=== PATIENT | male | born 2000 | race Caucasian/White ===

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

== ENCOUNTER → 2018-02-13 | Outpatient (CLI) | payer OTHER ==
[~2018-02-13] MED LIST changes: -CEFAZOLIN 1000MG IV PUSH 5 ML IV SCH; -LACTATED RINGER'S 1000ML 1,000 ML IV SCH
--- NOTE | 2018-02-14 06:16 | PAP/PSG TECHNICIAN REPORT ---
[facility] Operations And Maintenance Supervisor Polysomnogram Report Study name: None Report date: 02/14/2018 Study date: 02/13/2018 Referring Physician: DR. MACIAS Name: HARRY MEDLEY Interpreting Physician: Toi Marroquin D.O. Date of : 2000 Operations And Maintenance Supervisor: Marc Barahona [facility]. Sex: Male Age: 17 StudyType: PSG Weight: 175 lbs Height: 17 years, Height 5' 4" BMI: 30.04 Medications: LEVOTHYROXINE 100 MCG, FLUTICASONE PROPIONATE 50 MCG Patient History PATIENT RECENTLY HAD A SLEEP STUDY DONE THAT SHOWED HE WAS POSITIVE FOR RUPESH. HE HAD A SURGICAL PROCEDURE COMPLETED IN ORDER TO HELP WITH HIS RUPESH. HE IS HERE TODAY FOR REEVALUATION OF HIS RUPESH. RM 6 Parameters Monitored NPSG: E1-M2, E2-M1, Fp1-M2, Fp2-M1, F3-M2, F4-M2, F4-M1, C3-M2, C4-M2, C4-M1, O1-M2, O2-M2, O2-M1, T3-M2, T4-M1, P3-M2, P4-M1, CHIN1, CHIN2, HR, EKG, Legs, PFLOW, SNOR, FLOW, CFLOW, Tidal Volume, THOR, ABDO, SpO2, PLTH, CPRESS, ETCO2 Wave, ETCO2, pH Sleep Architecture Sleep Stages Time at Lights Off 9:56:13 PM STAGES Time (min.) TST (%) Time at Lights On 5:29:13 AM Wake 71.0 -- Total Recording Time (TRT) 453.00 min. N1 18.5 5 Total Sleep Period (TSP) 413.5 min. N2 231.0 60 Total Sleep Time (TST) 382.0min. N3 70.0 18 Awake Time 71.0 min. REM 62.5 16 Wake after Sleep Onset 31.5 min. Sleep Efficiency (SE) 84 % Sleep Onset Latency (XI) 39.5 min. Number of Stage 1 Shifts None Awakenings 17 Stage Changes 83 Number of REM periods 2 REM 62.5 16 REM Latency 184.5 min. NREM 319.5 84 Body Position Analysis Supine Right Left Side Prone Vertical Total Sleep Time (min.) 453.0 0.0 0.0 0.00 0.0 0.0 Total Sleep Time (%) 100% 0% 0% 0 0% N/A% Total Sleep Time REM (min.) 62.5 0.0 0.0 None 0.0 0.0 Total Sleep Time NREM (min.) 319.5 0.0 0.0 None 0.0 0.0 Intermittent Wake (min.) 71.0 0.0 0.0 None 0.0 0.0 Total Sleep Period (%) 100% None None None None None Arousals Myoclonus (PLM) * Events Count Index Events Count Index Spontaneous 49 8 Events Awake (PLMW) 50 42.3 Respiratory 21 3.3 Events Asleep w/ Arousal (PLMA) 9 1.4 PLM 9 1 Events Asleep w/o Arousal (PLMS) 68 10.7 Snoring 2 0 Total Asleep 77 12.1 Total 81 13 Total 127 17 Respiratory Analysis * CA OA MA CH H RERA Total Count 0 111 2 0 99 0 212 Index 0.0 17.4 0.3 0 15.5 0 33.3 Mean Duration 0.0 24.5 25.5 0.00 19.3 0.0 22.1 Longest Duration 0.0 59.9 34.8 0.00 34.8 0.0 59.9 Respiratory Event Summary Total Supine ~Supine Right Left Prone REM NREM Apneas Count 113 113 N/A N/A N/A N/A 44 69 Index 17.7 18 N/A N/A N/A N/A 42 13 Hypopneas (4% Desat) Count 99 99 N/A N/A N/A N/A 19 80 Index 15.5 15.5 N/A N/A N/A N/A 18.2 15.0 Apneas & All Hypopneas Count 212 212 N/A N/A N/A N/A 63 149 Index 33.3 33 N/A N/A N/A N/A 60.5 28.0 Respiratory Events (Social Science Manager+All Hyp+RERA) Count 212 212 N/A N/A N/A N/A 63 149 Index 33.3 33 N/A N/A N/A N/A 60.5 28.0 Respiratory Related Arousal Count 21 212 N/A N/A N/A N/A 2 19 Index 3.3 3 N/A N/A N/A N/A 2 4 Snoring Analysis Supine Right Left Prone REM NREM Total Snore duration 2.3 min Snores count 97 N/A N/A N/A 21 76 97 Snore mean duration 1.4 Sec Snores index 15 N/A N/A N/A 20.2 14.3 15.2 TST with snoring (%) 0.6% Desaturation Event Summary: Minimum %SpO2 Event Count Mean/Min/Max Duration(sec.) Desaturation Index % Time In Bed > 90 187 25.7 / 4.5 / 55.8 33.7 74.3 86 - 90 84 25.2 / 5.8 / 52.8 58.5 19.2 81 - 85 2 11.3 / 6.3 / 16.3 8.7 3.1 76 - 80 0 N/A 0.0 1.5 71 - 75 0 N/A 0.0 1.4 66 - 70 0 N/A 0.0 0.4 61 - 65 0 N/A 0.0 0.1 56 - 60 0 N/A 0.0 0.0 51 - 55 0 N/A 0.0 0.0 < 50 0 N/A 0.0 0.0 Total REM NREM Awake <50% 0.0 min. 0.0 min. 0.0 min. 0.0 min. 51 - 60% 0.0 min. 0.0 min. 0.0 min. 0.0 min. 61 - 70% 2.2 min. 2.2 min. 0.0 min. 0.0 min. 71 - 80% 13.0 min. 12.8 min. 0.2 min. 0.0 min. 81 - 90% 99.9 min. 25.5 min. 72.5 min. 1.9 min. 91 - 100% 333.3 min. 21.4 min. 243.8 min. 68.1 min. Average 91 86 91 93 Minimum SpO2 64 64 79 88 Desaturation Event Index 27.2 62.4 25.7 2.5 # Desat. Events below 89% 155 61 94 N/A Time(%) with Saturation below 89% 13.0 6.9 6.1 0.0 Time(min.) with Saturation below 89% 58.4 31.1 27.3 0.0 Time (mins) REM (mins) NREM (mins) % of TST SpO2 Below 90% 197 65 N132 20.2 SpO2 Below 88% 66 0 0 12 Heart Rate Analysis Min (bpm) Max (bpm) Average (bpm) Awake 47 237 74 NREM 51 127 67 REM 56 96 69 Overall 51 127 67 Supplemental O2 Values Minimum O2 level: None Value Start Time End Time Operations And Maintenance Supervisor Comments Mr. Medley slept in the supine positions. No cardiac arrhythmia noted. Leg movements noted. No bruxism noted. Snoring was noted and scored as a 2 on a scale of 1 through 5. (0=no snoring, 5=snoring loud enough to be heard through a closed door or down the [address] way) Mr. Medley awoke to use the restroom 0 times during the night. Mr. Medley stated I slept as well as I do when I am in my own bed. The final report will be interpreted and signed by a sleep physician. The completed physician report will then be placed in the patient medical record. Therapy (cm H2O) 0 TIB (min.) 453.0 TST (min.) 382.0 Sleep Onset (min.) 39.5 REM Onset From Sleep (min.) 184.5 Sleep Efficiency % 84 Wakefulness (%) 16 Wakefulness (min.) 71.0 NREM 1 (%) 5 NREM 1 (min.) 18.5 NREM 2 (%) 60 NREM 2 (min.) 231.0 NREM 3 (%) 18 NREM 3 (min.) 70.0 REM (%) 16 REM (min.) 62.5 # Arousals 81 Arousal Index 13 # Snore 97 Snore Index 15.2 AHI 33.3 AHI Supine 33 AHI Non-Supine N/A NREM AHI 28.0 REM AHI 60.5 RDI 33.3 # Obstructive Apnea 111 # Central Apnea 0 # Mixed Apnea 2 # Hypopneas 99 RERAs 0 Total Respiratory Events 214 Time Below SpO2 89% (min.) 58.4 Mean NREM SpO2 (%) 91 Mean REM SpO2 (%) 86 Mean Sleep SpO2 (%) 90 Min NREM SpO2 (%) 79 Min REM SpO2 (%) 64 Position Supine (min.) 453.0 Position Non-supine (min.) 0.0 LM Index Sleep 12.1 LM Index NREM 10.0 LM Index REM 23.0 Mean Heart Rate (bpm) 67 Min Heart Rate (bpm) 51
--- NOTE | 2018-02-16 22:40 | POLYSOMNOGRAPH REPORT ---
CLINICAL DATA: The patient is a 17-year-old male with Down's syndrome. A diagnostic sleep study was done on 10/08/2014 showing at least moderate sleep apnea with an apnea hypopnea index of 30.4. A repeat sleep study was done on 08/10/2017, which was very similar showing an apnea hypopnea index of 29.1. He has previously had some ENT surgery. More recently, he has had somnoplasty of the tongue base. He is referred by Dr. Avila for a reevaluation to determine the status of his sleep apnea. His BMI is 30.04. The patient's symptoms include fatigue, snoring, and observed apneas. SLEEP ARCHITECTURE: The total sleep period was 413.5 minutes. The total sleep time was 382 minutes. The sleep efficiency is mildly reduced to 84%. The sleep latency is 39.5 minutes. Wake after sleep onset is 31.5 minutes. The REM latency was prolonged to 184.5 minutes. There were only 2 REM periods during the night. Sleep consisted of stage N1 5%, stage N2 60%, stage N3 18%, stage REM 16%. AROUSAL DATA: The patient had a total of 81 arousals including 49 spontaneous arousals, 21 respiratory arousals, 9 PLM arousals, and 2 snoring arousals. The arousal index was 13. PLM DATA: The patient had a total of 77 periodic limb movements of sleep for a PLM index of 12.1. There were 9 arousals associated with limb movements for a PLM arousal index of 1.4. EKG: The lowest heart rate is 51 beats per minute. The average heart rate is 67 beats per minute. No arrhythmias were noted. RESPIRATORY DATA: The patient had a total of 212 respiratory events including 111 obstructive apneas, 2 mixed apneas, and 99 hypopneas. Hypopneas were scored according to the 4% desaturation rule. The longest apnea was 59.9 seconds. The mean duration of the apneas was 25 seconds. The mean duration of the hypopneas was 19.3 seconds. The apnea hypopnea index is elevated at 33.3. This reflects moderately severe obstructive sleep apnea. OXIMETRY DATA: The average saturation for the night was 91%. The minimum saturation was 64%. There was a total of 58.4 minutes with saturations less than 89%. Most of the desaturations occurred during REM sleep and while the patient was having respiratory events. DIRECTOR MERIT SYSTEM COMMENTS: The patient slept in the supine position. No cardiac arrhythmia noted. Leg movements noted. No bruxism noted. Snoring was noted and scored as a 2 on a scale of 1 through 5. The patient did not awaken to use the restroom during the night. IMPRESSION: Obstructive sleep apnea - moderately severe. COMMENTS: This study is similar to the prior 2 studies showing very significant sleep apnea associated with significant hypoxia. There was a much greater frequency of events during REM sleep. His apnea-hypopnea index during REM was 60.5. RECOMMENDATIONS: 1. Consideration is given to treatment with nasal CPAP therapy. 2. If possible, the patient should avoid sleeping in the supine position. Typically, there are more respiratory events while supine as well as more snoring while supine. 3. Consideration could be given to treatment with an oral appliance. 4. Weight loss is advised in light of the elevation of body mass index. MTDD
--- NOTE | 2018-02-21 14:58 | CODING QUERY NO DIAGNOSIS ---
TREATMENT RENDERED WITHOUT A DIAGNOSIS To promote full compliance with coding requirements relating to patient care, physician participation is requested in all cases of film rental clerk uncertainty. Please assist us with providing a diagnosis/symptom for the test(s) below: A diagnosis/symptom was not documented on your Order. A valid diagnosis/symptom is required to bill all insurances. Please remember that we are unable to code a diagnosis of rule out, probable, possible, questionable, or suspected. Tests that require a diagnosis: * Sleep Study DOS: 02/13/18 DIAGNOSIS: Provider Signature: Date: Thank you Kelly Chaudhari Health Information Management Once completed, please kindly fax back to [phone] For questions please call [phone]
== END | disposition home or self-care (01) ==
LOC: C.NEUR 21:00
PROVIDERS: ATTEND Otolaryngology
DX: G47.33 Obstructive sleep apnea (adult) (pediatric) (principal)